=== PATIENT | male | born 1955 | race Caucasian/White ===

== ENCOUNTER 2023-12-06 16:01 | Inpatient (IN) | payer MEDICARE, OTHER ==
[~2023-12-06] VITALS: Ht 160 cm; Wt 50.0 kg
[2023-12-06 17:21] LABS: BASOPHILS # (AUTO) 0.1 X10'3 (0-0.2); BASOPHILS % (AUTO) 0.6 % (0-1); EOSINOPHILS % (AUTO) 0 % (0-6); HEMATOCRIT 41.3 % (42.0-52.0); HEMOGLOBIN 13.8 g/dl (14.0-17.9); LYMPHOCYTES # (AUTO) 1.8 X10'3 (1.1-4.8); LYMPHOCYTES % (AUTO) 12.9 % (21-51); MEAN CORPUSCULAR HEMOGLOBIN 33.8 PG (27.0-31.0); MEAN CORPUSCULAR HGB CONC 33.5 g/dL (33.0-36.5); MEAN CORPUSCULAR VOLUME 100.9 FL (78-98); MEAN PLATELET VOLUME 7.5 FL (7.4-10.4); MONOCYTES # (AUTO) 1.2 X10'3 (0-0.9); MONOCYTES % (AUTO) 8.6 % (2-12); NEUTROPHILS % (AUTO) 77.9 % (42-75); PLATELET COUNT 350 X10'3 (140-440); RED BLOOD COUNT 4.09 X10'6 (4.70-6.10); RED CELL DISTRIBUTION WIDTH 13.4 % (11.5-14.5); WHITE BLOOD COUNT 14.1 X10'3 (4.5-11.0)
[2023-12-06 17:48] LABS: ALBUMIN 3.2 G/DL (3.4-5.0); ANION GAP 12 (8-16); BLOOD UREA NITROGEN 11 MG/DL (7-18); BUN/CREATININE RATIO 10.2 (10.0-20.0); CALCIUM 9.5 MG/DL (8.5-10.1); CHLORIDE 101 MMOL/L (99-107); CREATININE 1.08 MG/DL (0.60-1.10); ETHANOL < 10 MG/DL (<10); GLUCOSE 99 MG/DL (70-104); POTASSIUM 4.7 MMOL/L (3.5-5.1); SODIUM 136 MMOL/L (135-145); eCRCL 47 ML/MIN; eGFR 68 ML/MIN
[2023-12-06] MEDS ORDERED: EMPA10TA PO (20:31)
[2023-12-06] MEDS ORDERED: LEVE10006 PO (20:31)
[2023-12-06] MEDS ORDERED: ONDA-243 PO (20:31)
[2023-12-06] MEDS ORDERED: ACET325C6 PO (20:31)
[2023-12-06] MEDS ORDERED: ATOR-429 PO (20:31)
[2023-12-06] MEDS ORDERED: SACU1TAB PO (20:31)
[2023-12-06] MEDS ORDERED: BISA-155 PO (20:31)
[2023-12-06] MEDS ORDERED: PPD TD (20:31)
[2023-12-06] MEDS ORDERED: CARV6.253 PO (20:31)
[2023-12-06] MEDS ORDERED: MULT-1085 PO (20:31)
[2023-12-06] MEDS ORDERED: ASPI-611 PO (20:31)
[2023-12-06] MEDS ORDERED: MAGN400O6 PO (20:31)
[2023-12-06] MEDS ORDERED: FOLI1TAB27 PO (20:31)
[2023-12-06] MEDS ORDERED: SPIR25TA5 PO (20:31)
[2023-12-06] MEDS ORDERED: THIA50TA10 PO (20:31)
[2023-12-06] MEDS ORDERED: RIVA20TA PO (20:31)
[2023-12-06] MEDS ORDERED: PERFLUTREN PROTEIN-A MICROSPHR (Optison) 0.22 MG/ML 3ML VIAL IV PRN (20:45)
[2023-12-06] MEDS ORDERED: magnesium sulf-water 2g/50mL 50 ML IV PRN (20:45)
[2023-12-06] MEDS ORDERED: acetaminophen 325mg tablet PO PRN (20:45)
[2023-12-06] MEDS ORDERED: magnesium sulf-water 4G/100mL 100 ML IV PRN (20:45)
[2023-12-06] MEDS ORDERED: magnesium Cl slow-release 64mg tablet PO PRN (20:45)
[2023-12-06] MEDS ORDERED: potassium Cl 40MEQ/1/2NS 520ml 520 ML IV PRN (20:45)
[2023-12-06] MEDS ORDERED: potassium Cl 20 mEq SR tablet PO PRN ×2 (20:45)
[2023-12-06 21:16] LABS: HEMOGLOBIN A1C 5.3 % (4.5-6.2)
[2023-12-06] MEDS: rivaroxaban 20mg tablet PO SCH (23:55)
[2023-12-07 04:23] LABS: PRO BRAIN NATRIURETIC PEPTIDE 5509 PG/ML (0-125)
[2023-12-07 07:16] LABS: BASOPHILS # (AUTO) 0.1 X10'3 (0-0.2); EOSINOPHILS % (AUTO) 0.4 % (0-6); HEMATOCRIT 37.3 % (42.0-52.0); HEMOGLOBIN 12.7 g/dl (14.0-17.9); LYMPHOCYTES # (AUTO) 1.8 X10'3 (1.1-4.8); LYMPHOCYTES % (AUTO) 20.2 % (21-51); MEAN CORPUSCULAR HEMOGLOBIN 34.2 PG (27.0-31.0); MEAN CORPUSCULAR VOLUME 100.7 FL (78-98); MONOCYTES # (AUTO) 0.9 X10'3 (0-0.9); MONOCYTES % (AUTO) 9.8 % (2-12); NEUTROPHILS # (AUTO) 6.1 X10'3 (1.8-7.7); NEUTROPHILS % (AUTO) 68.6 % (42-75); PLATELET COUNT 336 X10'3 (140-440); RED BLOOD COUNT 3.71 X10'6 (4.70-6.10); RED CELL DISTRIBUTION WIDTH 13.3 % (11.5-14.5); WHITE BLOOD COUNT 8.9 X10'3 (4.5-11.0)
[2023-12-07 07:23] LABS: APTT 32 SECONDS (22-32); INR 1.3 INR; PROTHROMBIN TIME 13.8 SECONDS (9.0-12.0)
[2023-12-07 07:47] LABS: ALANINE AMINOTRANSFERASE 15 U/L (12-78); ALBUMIN 2.7 G/DL (3.4-5.0); ALBUMIN/GLOBULIN RATIO 0.7 (1.1-1.5); ALKALINE PHOSPHATASE 67 IU/L (46-116); ANION GAP 15 (8-16); ASPARTATE AMINO TRANSFERASE 29 U/L (10-37); BILIRUBIN,TOTAL 0.7 MG/DL (0.1-1.0); BLOOD UREA NITROGEN 17 MG/DL (7-18); BUN/CREATININE RATIO 25.4 (10.0-20.0); CHLORIDE 103 MMOL/L (99-107); CHOLESTEROL 105 MG/DL (0-200); CREATININE 0.67 MG/DL (0.60-1.10); GLUCOSE 85 MG/DL (70-104); HDL CHOLESTEROL 26 MG/DL (35-60); LDL CHOLESTEROL 69 MG/DL (50-100); MAGNESIUM 1.8 MG/DL (1.5-2.4); PHOSPHORUS 4.1 MG/DL (2.3-4.5); POTASSIUM 3.6 MMOL/L (3.5-5.1); SODIUM 137 MMOL/L (135-145); TOTAL CARBON DIOXIDE 18.7 MMOL/L (24-32); TOTAL PROTEIN 6.7 G/DL (6.4-8.2); TRIGLYCERIDES 75 MG/DL (20-135); eCRCL 76 ML/MIN; eGFR > 90 ML/MIN
[2023-12-07] MEDS: K and/or MAG REPLACEMENT MC SCH (08:00)
[2023-12-07] MEDS: carvedilol 6.25mg tablet PO SCH (08:23)
[2023-12-07] MEDS: levetiracetam 250mg tablet PO SCH (08:23)
[2023-12-07] MEDS: folic acid 1mg tablet PO SCH (08:24)
[2023-12-07] MEDS: multivitamins, therapeutics tablet PO SCH (08:24)
[2023-12-07] MEDS: thiamine 100mg tablet PO SCH (08:24)
[2023-12-07] MEDS: aspirin 81mg, enteric-coated 1 TAB TABLET.DR PO SCH (08:24)
[2023-12-07] MEDS: EMPAGLIFLOZIN 10 MG TABLET PO SCH (08:24)
[2023-12-07] MEDS: atorvastatin 20mg tablet PO SCH (08:24)
[2023-12-07] MEDS: spironolactone 25 MG tablet PO SCH (08:24)
[2023-12-07] MEDS: sacubitril/valsartan 24mg-26mg tablet PO SCH (08:24)
[2023-12-07 14:37] LABS: URINE AMPHETAMINE SCREEN NEGATIVE (Neg); URINE BARBITUATE SCREEN NEGATIVE (Neg); URINE BENZODIAZEPINES SCREEN NEGATIVE (Neg); URINE CANNABINOID SCREEN POSITIVE (Neg); URINE COCAINE SCREEN NEGATIVE (Neg); URINE METHADONE SCREEN NEGATIVE (Neg); URINE OPIATE SCREEN NEGATIVE (Neg); URINE PHENCYCLIDINE SCREEN NEGATIVE (Neg)
[2023-12-07 14:42] LABS: BILIRUBIN,URINE SMALL (Neg); CLARITY,URINE SLIGHTLY CLOUDY (Clear); COLOR,URINE YELLOW (Yellow); GLUCOSE, URINE >=1000 mg/dl (Neg); KETONES,URINE >=80 mg/dl (Neg); LEUKOCYTE ESTERASE ,URINE NEGATIVE (Neg); NITRITES, URINE NEGATIVE (Neg); OCCULT BLOOD,URINE SMALL (Neg); PROTEIN,URINE 30 mg/dl (Neg); UROBILINOGEN,URINE 0.2 E.U/dL (0.2-1.0)
[2023-12-07 15:09] LABS: UA COLLECTION TYPE NON-SPECIFIED
[2023-12-07 15:15] LABS: SQUAMOUS EPITHELIAL CELL,UR FEW /LPF (FEW)
[2023-12-07 15:16] LABS: BACTERIA,URINE FEW /HPF (Neg)
[2023-12-07 17:14] VITALS: RESP 16
[2023-12-07 18:00] VITALS: BP 108/62; PULSE 75; RESP 18; TEMP 97.6; O2SAT 97
[2023-12-07 21:38] VITALS: BP 93/50; PULSE 71
[2023-12-07 22:00] VITALS: BP 90/39; PULSE 69; RESP 16; TEMP 98.1; O2SAT 93
[2023-12-08 06:00] VITALS: BP 98/50; PULSE 75; RESP 16; TEMP 98; O2SAT 96
[2023-12-08 06:55] LABS: APTT 28 SECONDS (22-32); INR 1.1 INR; PROTHROMBIN TIME 11.9 SECONDS (9.0-12.0)
[2023-12-08 07:15] LABS: BASOPHILS # (AUTO) 0.1 X10'3 (0-0.2); BASOPHILS % (AUTO) 0.8 % (0-1); EOSINOPHILS % (AUTO) 0.4 % (0-6); HEMATOCRIT 36.7 % (42.0-52.0); HEMOGLOBIN 12.4 g/dl (14.0-17.9); LYMPHOCYTES # (AUTO) 1.9 X10'3 (1.1-4.8); LYMPHOCYTES % (AUTO) 19.8 % (21-51); MEAN CORPUSCULAR HEMOGLOBIN 33.9 PG (27.0-31.0); MEAN CORPUSCULAR HGB CONC 33.6 g/dL (33.0-36.5); MEAN CORPUSCULAR VOLUME 100.7 FL (78-98); MEAN PLATELET VOLUME 8.2 FL (7.4-10.4); MONOCYTES # (AUTO) 0.7 X10'3 (0-0.9); MONOCYTES % (AUTO) 7.7 % (2-12); NEUTROPHILS # (AUTO) 6.9 X10'3 (1.8-7.7); NEUTROPHILS % (AUTO) 71.3 % (42-75); PLATELET COUNT 374 X10'3 (140-440); RED BLOOD COUNT 3.65 X10'6 (4.70-6.10); RED CELL DISTRIBUTION WIDTH 13.5 % (11.5-14.5); WHITE BLOOD COUNT 9.7 X10'3 (4.5-11.0)
[2023-12-08 07:24] LABS: ALANINE AMINOTRANSFERASE 20 U/L (12-78); ALBUMIN 2.8 G/DL (3.4-5.0); ALBUMIN/GLOBULIN RATIO 0.7 (1.1-1.5); ALKALINE PHOSPHATASE 66 IU/L (46-116); ANION GAP 10 (8-16); ASPARTATE AMINO TRANSFERASE 27 U/L (10-37); BILIRUBIN,TOTAL 0.6 MG/DL (0.1-1.0); BLOOD UREA NITROGEN 25 MG/DL (7-18); BUN/CREATININE RATIO 37.9 (10.0-20.0); CALCIUM 9.1 MG/DL (8.5-10.1); CHLORIDE 103 MMOL/L (99-107); CREATININE 0.66 MG/DL (0.60-1.10); GLUCOSE 95 MG/DL (70-104); MAGNESIUM 1.8 MG/DL (1.5-2.4); PHOSPHORUS 4.2 MG/DL (2.3-4.5); POTASSIUM 4.1 MMOL/L (3.5-5.1); SODIUM 138 MMOL/L (135-145); TOTAL CARBON DIOXIDE 24.7 MMOL/L (24-32); TOTAL PROTEIN 6.6 G/DL (6.4-8.2); eCRCL 77 ML/MIN; eGFR > 90 ML/MIN
[2023-12-08 08:00] VITALS: RESP 16; O2SAT 96
[2023-12-08 11:05] VITALS: BP 104/50; PULSE 72; RESP 16; TEMP 97.8; O2SAT 93
[2023-12-08 18:00] VITALS: BP 101/55; PULSE 80; RESP 16; TEMP 98.2; O2SAT 93
[2023-12-08 20:00] VITALS: RESP 16; O2SAT 96
[2023-12-08] MEDS: carvedilol 6.25mg tablet PO SCH (20:26)
[2023-12-08] MEDS: sacubitril/valsartan 24mg-26mg tablet PO SCH (20:28)
[2023-12-08 22:00] VITALS: BP 111/65; PULSE 69; RESP 17; TEMP 97.3; O2SAT 95
[2023-12-09] VITALS (8 sets, daily range): BP systolic 94–108; BP diastolic 56–74; PULSE 67–77; RESP 16–18; TEMP 97.5–98.6; O2SAT 94–99
[2023-12-09 05:32] LABS: BASOPHILS # (AUTO) 0.1 X10'3 (0-0.2); BASOPHILS % (AUTO) 1.1 % (0-1); EOSINOPHILS % (AUTO) 0.5 % (0-6); HEMATOCRIT 34.6 % (42.0-52.0); HEMOGLOBIN 11.9 g/dl (14.0-17.9); LYMPHOCYTES # (AUTO) 2.3 X10'3 (1.1-4.8); LYMPHOCYTES % (AUTO) 28.9 % (21-51); MEAN CORPUSCULAR HEMOGLOBIN 34.6 PG (27.0-31.0); MEAN CORPUSCULAR HGB CONC 34.4 g/dL (33.0-36.5); MEAN CORPUSCULAR VOLUME 100.5 FL (78-98); MEAN PLATELET VOLUME 7.8 FL (7.4-10.4); MONOCYTES # (AUTO) 0.8 X10'3 (0-0.9); NEUTROPHILS # (AUTO) 4.8 X10'3 (1.8-7.7); NEUTROPHILS % (AUTO) 59.5 % (42-75); PLATELET COUNT 359 X10'3 (140-440); RED BLOOD COUNT 3.44 X10'6 (4.70-6.10); RED CELL DISTRIBUTION WIDTH 13.4 % (11.5-14.5)
[2023-12-09 05:42] LABS: APTT 27 SECONDS (22-32); INR 1.2 INR; PROTHROMBIN TIME 12.1 SECONDS (9.0-12.0)
[2023-12-09 05:52] LABS: ALANINE AMINOTRANSFERASE 22 U/L (12-78); ALBUMIN 2.9 G/DL (3.4-5.0); ALBUMIN/GLOBULIN RATIO 0.7 (1.1-1.5); ALKALINE PHOSPHATASE 73 IU/L (46-116); ANION GAP 5 (8-16); ASPARTATE AMINO TRANSFERASE 33 U/L (10-37); BILIRUBIN,TOTAL 0.5 MG/DL (0.1-1.0); BLOOD UREA NITROGEN 24 MG/DL (7-18); BUN/CREATININE RATIO 31.6 (10.0-20.0); CALCIUM 9.1 MG/DL (8.5-10.1); CHLORIDE 101 MMOL/L (99-107); CREATININE 0.76 MG/DL (0.60-1.10); GLUCOSE 112 MG/DL (70-104); MAGNESIUM 1.6 MG/DL (1.5-2.4); PHOSPHORUS 3.9 MG/DL (2.3-4.5); POTASSIUM 3.8 MMOL/L (3.5-5.1); SODIUM 134 MMOL/L (135-145); TOTAL CARBON DIOXIDE 27.8 MMOL/L (24-32); TOTAL PROTEIN 6.8 G/DL (6.4-8.2); eCRCL 67 ML/MIN; eGFR > 90 ML/MIN
[2023-12-09] MEDS: spironolactone 25 MG tablet PO SCH (08:00)
[2023-12-10] VITALS (7 sets, daily range): BP systolic 94–100; BP diastolic 54–64; PULSE 63–72; RESP 14–17; TEMP 97.5–98.1; O2SAT 97–98
[2023-12-10 07:01] LABS: INR 1.2 INR; PROTHROMBIN TIME 12.3 SECONDS (9.0-12.0)
[2023-12-10 07:10] LABS: BASOPHILS # (AUTO) 0.1 X10'3 (0-0.2); BASOPHILS % (AUTO) 0.8 % (0-1); EOSINOPHILS % (AUTO) 0.5 % (0-6); HEMOGLOBIN 10.9 g/dl (14.0-17.9); LYMPHOCYTES # (AUTO) 2.2 X10'3 (1.1-4.8); LYMPHOCYTES % (AUTO) 26.2 % (21-51); MEAN CORPUSCULAR HEMOGLOBIN 34.2 PG (27.0-31.0); MEAN CORPUSCULAR HGB CONC 34.2 g/dL (33.0-36.5); MONOCYTES # (AUTO) 0.6 X10'3 (0-0.9); NEUTROPHILS # (AUTO) 5.4 X10'3 (1.8-7.7); NEUTROPHILS % (AUTO) 65.5 % (42-75); PLATELET COUNT 342 X10'3 (140-440); RED CELL DISTRIBUTION WIDTH 13.4 % (11.5-14.5); WHITE BLOOD COUNT 8.3 X10'3 (4.5-11.0)
[2023-12-10 07:37] LABS: ALANINE AMINOTRANSFERASE 20 U/L (12-78); ALBUMIN 2.7 G/DL (3.4-5.0); ALBUMIN/GLOBULIN RATIO 0.7 (1.1-1.5); ALKALINE PHOSPHATASE 63 IU/L (46-116); ANION GAP 4 (8-16); ASPARTATE AMINO TRANSFERASE 31 U/L (10-37); BILIRUBIN,TOTAL 0.4 MG/DL (0.1-1.0); BLOOD UREA NITROGEN 19 MG/DL (7-18); BUN/CREATININE RATIO 26.8 (10.0-20.0); CALCIUM 8.6 MG/DL (8.5-10.1); CHLORIDE 101 MMOL/L (99-107); CREATININE 0.71 MG/DL (0.60-1.10); GLUCOSE 104 MG/DL (70-104); MAGNESIUM 1.5 MG/DL (1.5-2.4); PHOSPHORUS 3.2 MG/DL (2.3-4.5); POTASSIUM 3.9 MMOL/L (3.5-5.1); SODIUM 133 MMOL/L (135-145); TOTAL CARBON DIOXIDE 27.9 MMOL/L (24-32); TOTAL PROTEIN 6.5 G/DL (6.4-8.2); eCRCL 71 ML/MIN; eGFR > 90 ML/MIN
[2023-12-10] MEDS: sacubitril/valsartan 24mg-26mg tablet PO SCH (19:54)
[2023-12-10] MEDS: carVEDilol 3.125mg tablet PO SCH (19:54)
[2023-12-11] MEDS: benzocaine/benzethon 30gm ointment RC PRN (02:37)
[2023-12-11 06:00] VITALS: BP 98/49; PULSE 74; RESP 17; TEMP 97.9; O2SAT 98
[2023-12-11 07:23] LABS: BASOPHILS # (AUTO) 0.1 X10'3 (0-0.2); BASOPHILS % (AUTO) 0.6 % (0-1); EOSINOPHILS % (AUTO) 0.2 % (0-6); HEMATOCRIT 32.4 % (42.0-52.0); HEMOGLOBIN 11.2 g/dl (14.0-17.9); LYMPHOCYTES # (AUTO) 1.4 X10'3 (1.1-4.8); LYMPHOCYTES % (AUTO) 14.1 % (21-51); MEAN CORPUSCULAR HEMOGLOBIN 34.3 PG (27.0-31.0); MEAN CORPUSCULAR HGB CONC 34.6 g/dL (33.0-36.5); MEAN CORPUSCULAR VOLUME 98.9 FL (78-98); MEAN PLATELET VOLUME 8.1 FL (7.4-10.4); MONOCYTES # (AUTO) 0.6 X10'3 (0-0.9); MONOCYTES % (AUTO) 5.8 % (2-12); NEUTROPHILS # (AUTO) 7.8 X10'3 (1.8-7.7); NEUTROPHILS % (AUTO) 79.3 % (42-75); PLATELET COUNT 365 X10'3 (140-440); RED BLOOD COUNT 3.27 X10'6 (4.70-6.10); RED CELL DISTRIBUTION WIDTH 13.2 % (11.5-14.5); WHITE BLOOD COUNT 9.9 X10'3 (4.5-11.0)
[2023-12-11 07:35] LABS: INR 1.2 INR; PROTHROMBIN TIME 12.4 SECONDS (9.0-12.0)
[2023-12-11 07:51] LABS: ALANINE AMINOTRANSFERASE 24 U/L (12-78); ALBUMIN 2.9 G/DL (3.4-5.0); ALBUMIN/GLOBULIN RATIO 0.7 (1.1-1.5); ALKALINE PHOSPHATASE 71 IU/L (46-116); ANION GAP 5 (8-16); ASPARTATE AMINO TRANSFERASE 32 U/L (10-37); BILIRUBIN,TOTAL 0.5 MG/DL (0.1-1.0); BLOOD UREA NITROGEN 16 MG/DL (7-18); BUN/CREATININE RATIO 21.1 (10.0-20.0); CALCIUM 8.7 MG/DL (8.5-10.1); CHLORIDE 100 MMOL/L (99-107); CREATININE 0.76 MG/DL (0.60-1.10); GLUCOSE 108 MG/DL (70-104); MAGNESIUM 1.5 MG/DL (1.5-2.4); POTASSIUM 3.9 MMOL/L (3.5-5.1); SODIUM 132 MMOL/L (135-145); TOTAL CARBON DIOXIDE 27.5 MMOL/L (24-32); TOTAL PROTEIN 6.8 G/DL (6.4-8.2); eCRCL 67 ML/MIN; eGFR > 90 ML/MIN
[2023-12-11] MEDS: spironolactone 25 MG tablet PO SCH (09:43)
[2023-12-11 10:00] VITALS: BP 98/57; PULSE 69; RESP 14; TEMP 97.7; O2SAT 96
[2023-12-11 18:00] VITALS: BP 117/70; PULSE 76; RESP 15; TEMP 97.7; O2SAT 95
[2023-12-11] MEDS: metoprolol succinate 25mg (24-HOUR) SR. Tablet PO SCH (20:21)
[2023-12-11 22:00] VITALS: BP 125/76; PULSE 85; RESP 17; TEMP 97.3; O2SAT 93
[2023-12-12 06:00] VITALS: BP 118/72; PULSE 87; RESP 18; TEMP 97.5; O2SAT 93
[2023-12-12] MEDS: losartan 25mg tablet PO SCH (09:41)
[2023-12-12 11:00] VITALS: BP 130/75; PULSE 93; RESP 18; TEMP 98.2; O2SAT 95
[2023-12-12 18:00] VITALS: BP 116/77; PULSE 82; RESP 16; TEMP 97.8; O2SAT 95
[2023-12-12] MEDS: levetiracetam 250mg tablet PO SCH (19:41)
[2023-12-12 20:00] VITALS: RESP 16; O2SAT 95
[2023-12-12 22:00] VITALS: BP 123/58; PULSE 89; RESP 16; TEMP 97.7; O2SAT 91
[2023-12-13] MEDS: ondansetron/PF 4mg/2ml inj IV PRN (03:56)
[2023-12-13 07:00] VITALS: RESP 16; O2SAT 95
[2023-12-13] MEDS: LidoCAINE 2% Topical Jelly 11mL syringe (UROJET) TOP ONE (08:56)
[2023-12-13 10:00] VITALS: BP 103/62; PULSE 82; RESP 20; TEMP 98; O2SAT 96
[2023-12-13 18:00] VITALS: BP 106/65; PULSE 82; RESP 14; TEMP 98.5; O2SAT 93
[2023-12-13 19:10] VITALS: RESP 17; O2SAT 93
[2023-12-13 22:00] VITALS: BP 110/65; PULSE 88; RESP 16; TEMP 99; O2SAT 96
[2023-12-14 06:00] VITALS: BP 98/65; PULSE 73; RESP 16; TEMP 98; O2SAT 97
[2023-12-14 10:00] VITALS: BP 100/58; PULSE 78; RESP 16; TEMP 97.4; O2SAT 95
[2023-12-14 18:00] VITALS: BP 93/58; PULSE 79; RESP 14; TEMP 97.5; O2SAT 96
[2023-12-14 20:25] VITALS: RESP 14; O2SAT 96
[2023-12-14 22:00] VITALS: BP 109/63; PULSE 77; RESP 18; TEMP 98.7; O2SAT 96
[2023-12-15 06:00] VITALS: BP 113/68; PULSE 79; RESP 16; TEMP 97.9; O2SAT 95
[2023-12-15 10:00] VITALS: BP 105/62; PULSE 71; RESP 16; TEMP 97.5; O2SAT 95
[2023-12-15 18:30] VITALS: BP 100/60; PULSE 72; RESP 14; TEMP 97; O2SAT 94
[2023-12-15 22:00] VITALS: BP 107/64; PULSE 84; RESP 22; TEMP 99.4; O2SAT 94
[2023-12-16 06:00] VITALS: BP 110/63; PULSE 83; RESP 16; TEMP 97.7; O2SAT 96
[2023-12-16 10:00] VITALS: BP_SYST 100; BP_SYST 122; BP_DIAS 37; BP_DIAS 70; PULSE 66; PULSE 83; RESP 15; RESP 16; TEMP 98.1; TEMP 98.4; O2SAT 93; O2SAT 98
[2023-12-16] MEDS ORDERED: iohexol 300mg/ml 100ml inj. ONE (14:24)
[2023-12-16] MEDS: traMADol 50MG tablet PO PRN (14:27)
[2023-12-16 18:00] VITALS: BP 108/68; PULSE 83; RESP 16; TEMP 98.1; O2SAT 96
[2023-12-16 22:00] VITALS: BP 110/65; PULSE 82; RESP 16; TEMP 98.4; O2SAT 95
[2023-12-17 06:00] VITALS: BP 94/54; PULSE 74; RESP 17; TEMP 99.3; O2SAT 92
[2023-12-17 07:00] VITALS: RESP 17; O2SAT 92
[2023-12-17 07:18] LABS: BASOPHILS % (AUTO) 0.6 % (0-1); EOSINOPHILS % (AUTO) 0.1 % (0-6); HEMATOCRIT 33.1 % (42.0-52.0); HEMOGLOBIN 11.6 g/dl (14.0-17.9); LYMPHOCYTES # (AUTO) 1.1 X10'3 (1.1-4.8); LYMPHOCYTES % (AUTO) 13.1 % (21-51); MEAN CORPUSCULAR HEMOGLOBIN 34.6 PG (27.0-31.0); MEAN CORPUSCULAR VOLUME 98.8 FL (78-98); MEAN PLATELET VOLUME 7.6 FL (7.4-10.4); MONOCYTES # (AUTO) 0.6 X10'3 (0-0.9); NEUTROPHILS # (AUTO) 6.7 X10'3 (1.8-7.7); NEUTROPHILS % (AUTO) 79.2 % (42-75); PLATELET COUNT 372 X10'3 (140-440); RED BLOOD COUNT 3.35 X10'6 (4.70-6.10); RED CELL DISTRIBUTION WIDTH 13.1 % (11.5-14.5); WHITE BLOOD COUNT 8.4 X10'3 (4.5-11.0)
[2023-12-17 07:48] LABS: ALANINE AMINOTRANSFERASE 25 U/L (12-78); ALBUMIN/GLOBULIN RATIO 0.8 (1.1-1.5); ALKALINE PHOSPHATASE 84 IU/L (46-116); ANION GAP 6 (8-16); ASPARTATE AMINO TRANSFERASE 29 U/L (10-37); BILIRUBIN,TOTAL 0.6 MG/DL (0.1-1.0); BLOOD UREA NITROGEN 14 MG/DL (7-18); BUN/CREATININE RATIO 22.2 (10.0-20.0); CALCIUM 8.9 MG/DL (8.5-10.1); CHLORIDE 98 MMOL/L (99-107); CREATININE 0.63 MG/DL (0.60-1.10); GLUCOSE 100 MG/DL (70-104); POTASSIUM 3.7 MMOL/L (3.5-5.1); SODIUM 132 MMOL/L (135-145); TOTAL CARBON DIOXIDE 27.7 MMOL/L (24-32); eCRCL 80 ML/MIN; eGFR > 90 ML/MIN
[2023-12-17] MEDS: levetiracetam 250mg tablet PO SCH (08:01)
[2023-12-17 10:00] VITALS: BP_SYST 87; PULSE 87; RESP 20; TEMP 98; O2SAT 96
[2023-12-17 16:57] VITALS: BP 87/54; PULSE 87; RESP 20; TEMP 98; O2SAT 96
[2023-12-17 18:00] VITALS: BP 99/62; PULSE 98; RESP 20; TEMP 98.2; O2SAT 96
[2023-12-17 22:00] VITALS: BP 94/60; PULSE 90; RESP 14; TEMP 97.8; O2SAT 94
[2023-12-18 06:00] VITALS: BP 102/62; PULSE 111; RESP 18; TEMP 97.8; O2SAT 95
[2023-12-18 07:00] VITALS: RESP 18; O2SAT 95
[2023-12-18 10:00] VITALS: BP_SYST 102; BP_SYST 147; BP_DIAS 62; BP_DIAS 74; PULSE 111; PULSE 86; RESP 16; RESP 18; TEMP 97.8; TEMP 98.5; O2SAT 95
[2023-12-18 18:00] VITALS: BP 111/71; PULSE 91; RESP 18; TEMP 97.9; O2SAT 94
[2023-12-18 20:00] VITALS: RESP 18; O2SAT 94
[2023-12-18 22:00] VITALS: BP 99/62; PULSE 96; RESP 18; TEMP 98.6; O2SAT 97
[2023-12-19 06:00] VITALS: BP 108/65; PULSE 91; RESP 16; TEMP 97.9; O2SAT 93
[2023-12-19 07:00] VITALS: RESP 18
[2023-12-19 10:30] VITALS: BP 104/68; PULSE 92; RESP 16; TEMP 97.7; O2SAT 93
[2023-12-19 18:00] VITALS: BP 107/71; PULSE 63; RESP 17; TEMP 97.9; O2SAT 99
[2023-12-19 19:00] VITALS: RESP 17; O2SAT 99
[2023-12-19 22:00] VITALS: BP 112/75; PULSE 97; RESP 17; TEMP 98.7; O2SAT 96
[2023-12-20 06:00] VITALS: BP 116/71; PULSE 94; RESP 16; TEMP 98.2; O2SAT 96
[2023-12-20 07:00] VITALS: RESP 18
[2023-12-20 10:00] VITALS: BP 134/74; PULSE 94; RESP 18; TEMP 97.9; O2SAT 98
[2023-12-20 18:00] VITALS: BP 104/68; PULSE 98; RESP 16; TEMP 98.4; O2SAT 94
[2023-12-20] MEDS: lactose-reduced food (Ensure Enlive) - 237ml bottle PO SCH (18:55)
[2023-12-20 19:00] VITALS: RESP 19; O2SAT 95
[2023-12-20 22:00] VITALS: BP 109/71; PULSE 103; RESP 20; TEMP 98.2; O2SAT 96
[2023-12-21 06:00] VITALS: BP 104/68; PULSE 98; RESP 16; TEMP 98.4; O2SAT 94
[2023-12-21] MEDS: spironolactone 25 MG tablet PO SCH (08:30)
[2023-12-21 09:00] VITALS: BP 100/58; PULSE 98; RESP 16; TEMP 97.6
[2023-12-21 10:00] VITALS: BP 109/74; PULSE 107; RESP 20; TEMP 97.8; O2SAT 95
[2023-12-21] MEDS: bisacodyl 10mg suppository rectal RC STA (11:35)
[2023-12-21] MEDS: magnesium hydroxide 30ml (MOM) UD suspension PO ONE (11:40)
[2023-12-21] MEDS: docusate sod 100mg capsule PO SCH (20:08)
[2023-12-22 06:00] VITALS: BP 104/72; PULSE 62; RESP 18; TEMP 97.9; O2SAT 93
[2023-12-22] MEDS: spironolactone 25 MG tablet PO SCH (08:30)
[2023-12-22 10:00] VITALS: BP 95/60; PULSE 92; RESP 20; TEMP 98.1; O2SAT 93
[2023-12-22] MEDS: normal saline 1000ml 1,000 ML IV SCH (15:03)
[2023-12-22 18:00] VITALS: BP 93/58; PULSE 91; RESP 16; TEMP 98; O2SAT 90
[2023-12-22 22:00] VITALS: BP 90/58; PULSE 95; RESP 21; TEMP 98.2; O2SAT 93
[2023-12-23] VITALS (8 sets, daily range): BP systolic 76–135; BP diastolic 53–94; PULSE 95–144; RESP 16–48; TEMP 90.3–98.6; O2SAT 95–98
[2023-12-23 13:10] LABS: BASOPHILS # (AUTO) 0.1 X10'3 (0-0.2); BASOPHILS % (AUTO) 0.6 % (0-1); EOSINOPHILS % (AUTO) 0.1 % (0-6); HEMATOCRIT 31.5 % (42.0-52.0); HEMOGLOBIN 10.7 g/dl (14.0-17.9); LYMPHOCYTES # (AUTO) 1.3 X10'3 (1.1-4.8); LYMPHOCYTES % (AUTO) 10.1 % (21-51); MEAN CORPUSCULAR HEMOGLOBIN 33.6 PG (27.0-31.0); MEAN CORPUSCULAR HGB CONC 33.9 g/dL (33.0-36.5); MEAN CORPUSCULAR VOLUME 99.1 FL (78-98); MEAN PLATELET VOLUME 7.9 FL (7.4-10.4); MONOCYTES # (AUTO) 0.8 X10'3 (0-0.9); MONOCYTES % (AUTO) 5.7 % (2-12); NEUTROPHILS # (AUTO) 11.1 X10'3 (1.8-7.7); NEUTROPHILS % (AUTO) 83.5 % (42-75); PLATELET COUNT 377 X10'3 (140-440); RED BLOOD COUNT 3.18 X10'6 (4.70-6.10); RED CELL DISTRIBUTION WIDTH 13.3 % (11.5-14.5); WHITE BLOOD COUNT 13.3 X10'3 (4.5-11.0)
[2023-12-23] MEDS: morphine 2 MG/ML inj. syringe IV STA (13:23)
[2023-12-23 13:24] LABS: ABG HCO3 18.7 mmol/L (21.0-28.0); ABG OXYGEN SATURATION 96.9 % (94.0-98.0); ABG PCO2 (T) 22.6 mmHg (35.0-48.0); ABG PO2 (T) 88.8 mmHg (83.0-108.0); ALLEN'S TEST POSITIVE; FCOHb 0.2 % (0.5-1.5); FHHb 3.1 % (0.0-5.0); FLOW 3 L/min; FMetHb 0.3 % (0.0-1.5); FO2Hb 96.4 % (94.0-98.0); MODE NASAL CANNULA; PATIENT TEMPERATURE 38.1; TOTAL HEMOGLOBIN 11.4 G/dl (13.5-17.5)
[2023-12-23 13:28] LABS: ALANINE AMINOTRANSFERASE 46 U/L (12-78); ALBUMIN 2.8 G/DL (3.4-5.0); ALBUMIN/GLOBULIN RATIO 0.6 (1.1-1.5); ALKALINE PHOSPHATASE 125 IU/L (46-116); ANION GAP 9 (8-16); ASPARTATE AMINO TRANSFERASE 59 U/L (10-37); BILIRUBIN,TOTAL 1.2 MG/DL (0.1-1.0); BLOOD UREA NITROGEN 40 MG/DL (7-18); BUN/CREATININE RATIO 30.1 (10.0-20.0); CALCIUM 9.1 MG/DL (8.5-10.1); CHLORIDE 94 MMOL/L (99-107); CREATININE 1.33 MG/DL (0.60-1.10); GLUCOSE 152 MG/DL (70-104); POTASSIUM 4.1 MMOL/L (3.5-5.1); SODIUM 131 MMOL/L (135-145); TOTAL CARBON DIOXIDE 27.6 MMOL/L (24-32); TOTAL PROTEIN 7.5 G/DL (6.4-8.2); eCRCL 38 ML/MIN; eGFR 54 ML/MIN
[2023-12-23 13:29] LABS: ABG BASE EXCESS -0.2 mmol/L (-2.0-3.0); ABG HCO3 20.6 mmol/L (21.0-28.0); ABG OXYGEN SATURATION 97.3 % (94.0-98.0); ABG PCO2 (T) 24.7 mmHg (35.0-48.0); ABG PH (T) 7.544 (7.350-7.450); ABG PO2 (T) 92.1 mmHg (83.0-108.0); ALLEN'S TEST POSITIVE; FCOHb 0.3 % (0.5-1.5); FHHb 2.7 % (0.0-5.0); FLOW 3 L/min; FMetHb 0.3 % (0.0-1.5); FO2Hb 96.7 % (94.0-98.0); MODE NASAL CANNULA; PATIENT TEMPERATURE 38.1; TOTAL HEMOGLOBIN 11.8 G/dl (13.5-17.5)
[2023-12-23 13:46] LABS: LACTIC SEPSIS 4.3 MMOL/L (0.4-2.0)
[2023-12-23 14:57] LABS: PRO BRAIN NATRIURETIC PEPTIDE 8796 PG/ML (0-125)
[2023-12-23] MEDS: CefTRIAXone/D5W-Rocephin 1gm 50 ML IV SCH (15:24)
[2023-12-23] MEDS: furosemide 40mg/4ml inj IV ONE (15:26)
[2023-12-23] MEDS: levalbuterol 0.63mg/3ml nebule IH SCH (16:18)
[2023-12-23] MEDS: methylPREDNISolone sod succ/PF 40mg inj. IV SCH (22:20)
[2023-12-24 06:00] VITALS: BP 85/58; PULSE 67; RESP 16; TEMP 98.2; O2SAT 96
[2023-12-24 10:00] VITALS: BP 91/59; PULSE 78; RESP 16; RESP 18; TEMP 98.7; O2SAT 94
[2023-12-24 18:00] VITALS: BP 98/66; PULSE 96; RESP 20; TEMP 97.9; O2SAT 99
[2023-12-24 20:00] VITALS: RESP 23; O2SAT 99
[2023-12-24] MEDS: morphine 2 MG/ML inj. syringe IV PRN (23:03)
[2023-12-25 06:00] VITALS: BP 93/53; PULSE 101; RESP 21; TEMP 97.9; O2SAT 97
[2023-12-25 07:32] VITALS: RESP 21; O2SAT 97
[2023-12-25] MEDS: morphine 10mg/0.5ml (conc. morphine) oral syringe PO PRN (11:27)
[2023-12-25 18:00] VITALS: BP 111/73; PULSE 100; RESP 22; TEMP 96.9; O2SAT 100
[2023-12-25] MEDS: LORazepam 2 mg/ml vial IV ONE (19:52)
[2023-12-25 20:00] VITALS: RESP 22; O2SAT 100
[2023-12-26] MEDS: LORazepam 2 mg/ml vial IV ONE ×2 (04:50→12:56)
[2023-12-26 10:00] VITALS: BP 111/72; PULSE 102; RESP 24; TEMP 97.3; O2SAT 97
[2023-12-26] MEDS: LORazepam 2 mg/ml vial IV PRN ×2 (10:19→15:09)
[2023-12-26 10:30] VITALS: RESP 18; RESP 20
[2023-12-26] MEDS: morphine 10mg/0.5ml (conc. morphine) oral syringe PO PRN (15:55)
[2023-12-26] MEDS: morphine 2 MG/ML inj. syringe IV ONE (17:23)
[2023-12-26 18:45] VITALS: RESP 22; O2SAT 97
[2023-12-26] MEDS ORDERED: hydrOXYzine 25 MG tablet PO PRN (19:45)
[2023-12-26] MEDS: Melatonin 3mg tablet PO SCH (21:00)
[2023-12-26 22:00] VITALS: BP 84/55; PULSE 76; RESP 14; TEMP 96.7; O2SAT 98
[2023-12-27] MEDS: LORazepam 2 mg/ml vial IV PRN (02:14)
[2023-12-27 06:00] VITALS: BP 97/61; PULSE 87; RESP 22; TEMP 97; O2SAT 95
[2023-12-27 08:00] VITALS: RESP 22; O2SAT 95
[2023-12-27] MEDS: lactose-reduced food (Ensure Enlive) - 237ml bottle PO SCH (08:00)
[2023-12-27 18:00] VITALS: BP 99/69; PULSE 91; RESP 24; TEMP 96.9; O2SAT 92
[2023-12-27 20:00] VITALS: RESP 20; O2SAT 92
[2023-12-27] MEDS: morphine 10mg/0.5ml (conc. morphine) oral syringe PO PRN (22:28)
[2023-12-28 20:00] VITALS: RESP 18; O2SAT 97
[2023-12-28 22:00] VITALS: BP 98/59; PULSE 82; RESP 12; TEMP 97.7; O2SAT 98
[2023-12-29 06:50] VITALS: BP 113/55; PULSE 19; RESP 13; TEMP 97.5; O2SAT 96
[2023-12-29] MEDS ORDERED: hyoscyamine 0.125mg TAB.SUBL SL PRN (07:45)
[2023-12-29] MEDS: morphine 10mg/0.5ml (conc. morphine) oral syringe PO PRN (14:52)
[2023-12-29 20:00] VITALS: RESP 19; O2SAT 95
[2023-12-30 06:00] VITALS: BP 83/53; PULSE 140; RESP 40; TEMP 98.8; O2SAT 92
[2023-12-30 08:59] VITALS: PULSE 60; RESP 56; O2SAT 88
== END 2023-12-30 14:50 | DRG 64 ==
LOC: ER 16:02 → ED HOLD 20:53 → EDBEDREQ 12-07 00:08 → ORTHO 4S 12-07 15:56 → PCU 3S 12-23 13:40 → SUR 3N 12-23 20:15
PROVIDERS: ADMIT Internal Medicine Critical Care Medicine; ATTEND Family Medicine
PROC: BW211ZZ Computerized Tomography (CT Scan) of Abdomen and Pelvis using Low Osmolar Contrast (ICD-10-PCS; principal; 2023-12-16)
DX: I63.9 Cerebral infarction, unspecified (principal); G93.41 Metabolic encephalopathy; I21.4 Non-ST elevation (NSTEMI) myocardial infarction; I50.23 Acute on chronic systolic (congestive) heart failure; E87.3 Alkalosis; E44.0 Moderate protein-calorie malnutrition; Z68.1 Body mass index [BMI] 19.9 or less, adult; Z20.822 Contact with and (suspected) exposure to COVID-19; I51.3 Intracardiac thrombosis, not elsewhere classified; Z66 Do not resuscitate; R57.0 Cardiogenic shock; E86.0 Dehydration; J44.89 Other specified chronic obstructive pulmonary disease; E78.5 Hyperlipidemia, unspecified; R31.9 Hematuria, unspecified; I11.0 Hypertensive heart disease with heart failure; F10.21 Alcohol dependence, in remission; Z79.01 Long term (current) use of anticoagulants; Z51.5 Encounter for palliative care; Z79.899 Other long term (current) drug therapy; Z79.82 Long term (current) use of aspirin; R47.01 Aphasia
CPT/HCPCS: 36415; 36600; 70450; 71045; 74018; 74177; 80048; 80053; 80061; 80305; 80320; 81001; 82140; 82803; 83036; 83605; 83735; 83880; 84100; 84145; 84146; 84443; 84484; 85018; 85025; 85610; 85730; 87081; 87811; 92507; 92508; 92616; 93005; 93306; 94760; 94799; 97110; 97116; 97161; 97530; 99285; A4314; A4346; A4615; A6196; A6213; A6258; A6449; G0378; J0696; J1940; J2060; J2270; J2405; J2919; J7030; J7040; Q9967